=== PATIENT | female | born 1945 | race Caucasian/White ===

== ENCOUNTER 2017-04-02 04:23 | Emergency (ER) | payer MEDICARE, MEDICAID ==
--- NOTE | 2017-04-02 04:52 | C.PDOC ---
History Of Present Illness 72 yo male, hx of htn, dm, presents with right shoulder pain. as per pt, started in the middle of the night w/o inciting factor. pt states pain to right upper arm and shoulder. states pain worse with movement. pt states she had the pain 2x last week. pt states has h/o of arthritis. pt states no fevers, no chest pain, no cough, no n/v/d, no sob, no urinary changes Time Seen by Provider: 04/02/17 04:26 Chief Complaint (Nursing): Upper Extremity Problem/Injury Past Medical History Reviewed: Historical Data, Nursing Documentation, Vital Signs Vital Signs: Last Vital Signs Temp 98.7 F 04/02/17 05:56 Pulse 74 04/02/17 05:56 Resp 20 04/02/17 05:56 BP 117/65 04/02/17 05:56 Pulse Ox 100 04/02/17 05:56 - Medical History PMH: HTN, Hypercholesterolemia Family History: States: Unknown Family Hx - Social History Hx Tobacco Use: No Hx Alcohol Use: No Hx Substance Use: No - Immunization History Hx Tetanus Toxoid Vaccination: Yes Hx Influenza Vaccination: Yes Review Of Systems Except As Marked, All Systems Reviewed And Found Negative. Cardiovascular: Negative for: Chest Pain Musculoskeletal: Positive for: Shoulder Pain (right) Physical Exam - Physical Exam Appears: Well, No Acute Distress Skin: Normal Color, Warm, Dry Eye(s): bilateral: Normal Inspection, PERRL, EOMI Nose: Normal Throat: Normal Neck: Normal Cardiovascular: Rhythm Regular Respiratory: Normal Breath Sounds Gastrointestinal/Abdominal: Normal Exam Back: Normal Inspection Extremity: Normal ROM, Tenderness ((+)right shoulder/upper arm), Capillary Refill (normal), No Deformity, No Swelling ED Course And Treatment O2 Sat by Pulse Oximetry: 97 Medical Decision Making Medical Decision Making: exam consistent with msk pain vs arthrtiis. pt well appeairng, no cp, no sob. pt has pain with rom to right shoulder. toradol, xr reassess 530: xr neg as read by me. pt sleeping in nad. states pain resolved. asking for d/c. no cp. history and exam consistent with non cardiac pain. no erythema, clinical concern for septic joint. stable for outpt management. ambulating around er in nad, pain free. Disposition - Disposition Referrals: Radha Lopez MD [Staff Provider] - Disposition: HOME/ ROUTINE Disposition Time: 05:27 Condition: STABLE Additional Instructions: please your doctor/clinic and specialist. return to er with worsening symptoms or concerns. Prescriptions: Naproxen [Naprosyn] 500 mg PO BID PRN #14 tablet PRN Reason: Pain, Mild (1-3) Instructions: Shoulder Sprain (ED), Arthralgia (ED) Print Language: ANGOLAN - Clinical Impression Clinical Impression: Shoulder pain
[2017-04-02 05:57] VITALS: BP 117/65; PULSE 74; TEMP 98.7
[2017-04-02 06:01] VITALS: O2SAT 97
[2017-04-02 07:33] VITALS: RESP 18
--- NOTE | 2017-04-02 10:56 | RAD ---
PROCEDURE: Radiographs of the Right Shoulder HISTORY: shoulder pain COMPARISON: No prior. FINDINGS: BONES: No evidence of acute fracture. JOINTS: Moderate osteoarthritic changes at the AC joint. Mild separation of the AC joint seen. SOFT TISSUES: Normal. OTHER FINDINGS: None. IMPRESSION: No evidence of acute fracture. Degenerative changes and possible slight separation of the AC joint.
== END 2017-04-02 07:20 | disposition home or self-care (01) ==
LOC: C.ER 04:23
DX: M25.511 Pain in right shoulder (principal)
CPT/HCPCS: 73030; 82948; 96372; 99285; J1885

== ENCOUNTER 2017-04-10 01:14 | Inpatient (IN) | payer MEDICARE, MEDICAID ==
[2017-04-10] MEDS ORDERED: Albuterol HFA 90 mcg/actuation (8 g) IH PRN (22:04)
--- NOTE | 2017-04-10 22:10 | PCM.PSYCH ---
Initial Psychiatric Evaluation - Initial Psychiatric Evaluation Type of Admission: Voluntary Legal Status: Capacity History of Present Illness and Precipitating Events: Patient is a 71 year old female. She is single with three children. Two of her children live in [facility] and one is in the [place]. 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 She lives alone and has a homemaker who visits to help her. Patient came to the hospital because she was feeling depressed, anxious, and felt like she did not want to live. She appeared a bit disorganized and internally preoccupied. Patient says she has not been able to sleep for two months even with medications. She sees Dr. Mccloud every two months, most recently one month ago. She says the medications he is prescribing for depression, anxiety, and sleep are not working. She does not know the name of the medications. Patient feels like she wants to because she does not want to suffer anymore. She has never had any suicide attempts and has no plan. Patient says she hears a voice that is 'constant calling out her name.' The voice is worse at night. She thinks it may be a ' voice of god and that it is preventing her from hurting herself.' Patient was hospitalized for depression one time ten years ago. Patient denies any visual hallucinations but reports paranoid thoughts and persecutory delusions. Patient does not drink, smoke or use any illicit drugs. Patient denies any homicidal ideation. Allergies: denies PMH: HTN, diabetes, arthritis, hyperlipidemia PsychHx: depression, anxiety, insomnia FamPsychHx: Brother with anxiety and depression (he receives medication injections in [facility]) Current Medications: Active Medications Generic Name Dose Route Start Last Admin Trade Name Freq PRN Reason Stop Dose Admin Diphenhydramine HCl 50 mg 04/10/17 21:03 Benadryl PO Q6 PRN Anxiety Haloperidol 5 mg 04/10/17 21:03 Haldol PO Q6H PRN Agitation Lorazepam 0.5 mg 04/10/17 21:03 04/10/17 21:25 Ativan PO 0.5 mg Q6H PRN Administration severe anxiety Sertraline HCl 50 mg 04/11/17 10:00 Zoloft PO DAILY FCO Trazodone HCl 50 mg 04/10/17 21:03 04/10/17 21:25 Desyrel PO 50 mg HS PRN Administration Insomnia Past Psychiatric History - Past Psychiatric History Previous Treatment History: Inpatient Pertinent Medical Hx (Current Medical&Sleep Prob, Allergies): Allergies Allergy/AdvReac Type Severity Reaction Status Date / Time No Known Allergies Allergy Unverified 05/07/14 06:55 Albuterol Sulfate [Proair Hfa] 1 puff IH Q6 PRN #1 inh 05/07/14 Aspirin [Aspir 81] 81 mg PO DAILY 05/07/14 Azithromycin [Zithromax] 250 mg PO DAILY #4 tab 05/07/14 Benzonatate [Tessalon Perles] 200 mg PO TID PRN #30 sgl 05/07/14 Benztropine Mesylate [Cogentin] 1 mg PO HS 05/07/14 Carvedilol 25 mg PO BID 05/07/14 Carvedilol 25 mg PO DAILY 05/07/14 Cholecalciferol [Vitamin D] 5,000 iu PO DAILY 05/07/14 Diclofenac Sodium [Voltaren] 75 mg PO DAILY PRN 05/07/14 Escitalopram [Lexapro] 20 mg PO DAILY 05/07/14 Folic Acid 1 mg PO DAILY 05/07/14 Furosemide 40 mg PO DAILY 05/07/14 Loratadine 10 mg PO DAILY 05/07/14 Metformin Hydrochloride/Alicia [Janumet 500 mg-50 mg] 1 tab PO DAILY 05/07/14 Omeprazole [Omeprazole D/R] 20 mg PO DAILY 05/07/14 Simvastatin 20 mg PO DAILY 05/07/14 Sitagliptin Phosphate [Januvia] 100 mg PO DAILY 05/07/14 Naproxen [Naprosyn] 500 mg PO BID PRN #14 tablet 04/02/17 Review of Systems - Review of Systems All systems: reviewed and no additional remarkable complaints except - Psychiatric Psychiatric: Anxiety, Auditory Hallucinations, Irritability, Paranoia Mental Status Examination - Personal Presentation Personal Presentation: Looks older than stated age - Affect Affect: Constricted, Depressed - Motor Activity Motor Activity: Psychomotor Retardation - Reliability in Providing Information Reliability in Providing Information: Poor, due to alteration in thoughts, Poor , due to altered mood - Speech Speech: Disorganized - Mood Mood: Depressed, Anxious - Formal Thought Process Formal Thought Process: Hallucinations, Delusions, Paranoia, Loosening of associations - Hallucinations/Delusions Hallucinations: Auditory Delusions: Persecution - Obsessions/Compulsions Obsessions: No Compulsions: No - Cognitive Functions Orientation: Person, Place, Situation, Time Sensorium: Alert Attention/Concentration: Attentive Abstract Thinking: [place] Estimate of Intelligence: Below average Judgement: Imparied, as evidence by: Poor judgement, Imparied, as evidence by: Lack of insight into illness - Risk Risk: Suicidal, Diminished functioning - Strength & Assets Inventory Strength & Assets Inventory: Cooperative - Limitations Limitations: Living alone DSM 5 DX - DSM 5 DSM 5 Diagnosis: Schizoaffective disorder depressed type - Recommended/Plan of Treatment Treatment Recommendations and Plan of Treatment: Schizoaffective disorder depressed type CBT Psychoeducation Supportive therapy and group therapy Zoloft 50 mg PO Daily Trazodone 50 mg PO QHS HTN Continue prescribed mediations Monitor signs and symptoms Diabetes Mellitus Continue prescribed mediations Monitor signs and symptoms Arthritis Continue prescribed mediations Monitor signs and symptoms Hyperlipidemia Continue prescribed mediations Monitor signs and symptoms - Smoking Cessation Smoking Cessation Initiated: No
[2017-04-10 23:58] LABS: BASO % 0.4 % (0.0-2.0); EOS # 0.1 K/uL (0.0-0.7); EOS % 1.4 % (0.0-4.0); HEMATOCRIT 34.5 % (34.0-47.0); LYMPH # 2.3 K/uL (1.0-4.3); MEAN CELL VOLUME 88.7 fL (81.0-99.0); MEAN CORPUSCULAR HEMOGLOBIN 28.6 pg (27.0-31.0); MEAN CORPUSCULAR HGB CONC 32.3 g/dL (33.0-37.0); MEAN PLATELET VOLUME 10.8 fL (7.2-11.7); MONO # 0.7 K/uL (0.0-0.8); MONO % 8.5 % (0.0-10.0); RED CELL DISTRIBUTION WIDTH 14.1 % (11.5-14.5); WHITE BLOOD COUNT 7.9 K/uL (4.8-10.8)
[2017-04-11 00:14] LABS: ALB/GLOB RATIO 1.2 (1.0-2.1); ALCOHOL SERUM < 10 mg/dl (0-10); ALKALINE PHOSPHATASE 57 U/L (38-126); ALT/SGPT 41 U/L (9-52); AST/SGOT 30 U/L (14-36); BILIRUBIN,TOTAL 0.4 mg/dL (0.2-1.3); BLOOD UREA NITROGEN 13 mg/dL (7-17); CALCIUM 8.5 mg/dl (8.6-10.4); CARBON DIOXIDE 28 mmol/L (22-30); CHLORIDE 102 mmol/L (98-107); GFR AFRICAN-AMERICAN > 60; GLUCOSE,RANDOM 118 mg/dL (65-105); POTASSIUM 3.2 mmol/L (3.6-5.2); SODIUM 139 mmol/L (132-148); TOTAL PROTEIN 7.5 g/dL (6.3-8.3)
[2017-04-11 07:36] LABS: RBC URINE < 1 /hpf (0-3); URINE BILIRUBIN NEGATIVE (NEGATIVE); URINE BLOOD NEGATIVE (NEGATIVE); URINE COLOR Yellow (YELLOW); URINE GLUCOSE (UA) NORMAL (Normal); URINE KETONE NEGATIVE (NEGATIVE); URINE LEUKOCYTE ESTERASE NEG Leu/uL (Negative); URINE PROTEIN NEGATIVE (NEGATIVE); URINE UROBILINOGEN NORMAL mg/dL (0.2-1.0); WBC URINE < 1 /hpf (0-5)
[2017-04-11] MEDS: Ergocalciferol 50,000 Intl Units Cap PO SCH (11:06)
[2017-04-11] MEDS: Pantoprazole 40 mg EC Tab PO SCH (11:07)
[2017-04-11] MEDS ORDERED: Potassium Chloride 20 mEq ER Tab PO ONE (16:00)
--- NOTE | 2017-04-11 17:44 | PCM.PYCHPN ---
Psychiatric Progress Note - Psychiatric Progress Note Patient seen today, length of contact: 17 min Patient Chief Complaint: I was feeling depressed and suicidal Problems Identified/Issues Discussed: Patient seen and evaluated, chart reviewed and discussed with the nurse. Patient remained disorganized and internally preoccupied. Patient remained isolated, confined and withdrawn. She still reports of hearing God's voices. Patient still appears paranoid and delusional. She reports depressed mood and feelings of hopelessness and helplessness. She is taking medication and denied any side effects Supportive therapy and psychoeducation were given. Medication Change: Yes (Start Neurontin, start Abilify) Medical Record Reviewed: Yes Mental Status Examination - Cognitive Function Orientation: Person, Place, Situation, Time Memory: Intact Attention: Poor Concentration: Poor Association: Loose Fund of Knowledge: Poor - Mood Mood: Depressed, Anxious - Affect Affect: Constricted, Depressed - Speech Speech: Soft - Formal Thought Process Formal Thought Process: Hallucinations, Delusions, Paranoia, Loosening of associations - Suicidal Ideation Suicidal Ideation: No - Homicidal Ideation Homicidal Ideation: No Goal/Treatment Plan - Goal/Treatment Plan Need for Continued Stay: Discharge may exacerbated symptoms, Severe functional impairment Progress Toward Problem(s) and Goals/Treatment Plan: Schizoaffective disorder depressed type CBT Psychoeducation Supportive therapy and group therapy Zoloft 100 mg PO Daily Trazodone 50 mg PO QHS Neurontin 100 mg by mouth 3 times a day Abilify 5 mg by mouth daily at bedtime HTN Continue prescribed mediations Monitor signs and symptoms Diabetes Mellitus Continue prescribed mediations Monitor signs and symptoms Arthritis Continue prescribed mediations Monitor signs and symptoms Hyperlipidemia Continue prescribed mediations Monitor signs and symptoms - Smoking Cessation Smoking Cessation Initiated: No
[2017-04-12 08:13] VITALS: O2SAT 99
[2017-04-12] MEDS: Pantoprazole 40 mg EC Tab PO SCH (09:14)
[2017-04-12 09:35] LABS: CHLORIDE 97 mmol/L (98-107)
[2017-04-12 09:36] LABS: POTASSIUM 3.7 mmol/L (3.6-5.2); SODIUM 139 mmol/L (132-148)
[2017-04-12 09:38] LABS: ALB/GLOB RATIO 1.1 (1.0-2.1); AST/SGOT 22 U/L (14-36); BILIRUBIN,TOTAL 0.6 mg/dL (0.2-1.3); CARBON DIOXIDE 30 mmol/L (22-30); GFR AFRICAN-AMERICAN > 60; TOTAL PROTEIN 7.6 g/dL (6.3-8.3)
[2017-04-12 09:39] LABS: ALKALINE PHOSPHATASE 49 U/L (38-126); ALT/SGPT 25 U/L (9-52); BLOOD UREA NITROGEN 16 mg/dL (7-17); CALCIUM 8.2 mg/dl (8.6-10.4); GLUCOSE,RANDOM 160 mg/dL (65-105)
[2017-04-12] MEDS: Aluminum Hydroxide/Magnesium Hydroxide Susp (30 mL) PO PRN (18:40)
[2017-04-13] MEDS: Pantoprazole 40 mg EC Tab PO SCH (09:57)
[2017-04-13] MEDS: Aluminum Hydroxide/Magnesium Hydroxide Susp (30 mL) PO PRN (09:57)
--- NOTE | 2017-04-14 09:54 | PCM.PYCHPN ---
Psychiatric Progress Note - Psychiatric Progress Note Patient seen today, length of contact: 17 min Patient Chief Complaint: "I was hearing voices, one of God and one of the devil." Problems Identified/Issues Discussed: Patient seen and evaluated, chart reviewed and discussed with the nurse. As per the staff, she remained disorganized and internally preoccupied. She still reports of hearing God's voices. She reports depressed mood and feelings of hopelessness and helplessness. She still appears paranoid and delusional. She is taking medication and denied any side effects Supportive therapy and psychoeducation were given. Medication Change: Yes (increase abilify, increase remeron) Medical Record Reviewed: Yes Mental Status Examination - Cognitive Function Orientation: Person, Place, Situation, Time Memory: Intact Attention: Poor Concentration: Poor Association: Loose Fund of Knowledge: Poor - Mood Mood: Depressed, Anxious - Affect Affect: Constricted, Depressed - Speech Speech: Soft - Formal Thought Process Formal Thought Process: Hallucinations, Delusions, Paranoia, Loosening of associations - Suicidal Ideation Suicidal Ideation: No - Homicidal Ideation Homicidal Ideation: No Goal/Treatment Plan - Goal/Treatment Plan Need for Continued Stay: Discharge may exacerbated symptoms, Severe functional impairment Progress Toward Problem(s) and Goals/Treatment Plan: Schizoaffective disorder depressed type CBT Psychoeducation Supportive therapy and group therapy Abilify 10 mg by mouth daily at bedtime Fluoxetine 10 mg PO daily Neurontin 100 mg by mouth 3 times a day Haldol 5 mg PO Q6H PRN Ativan 0.5 mg PO Q6H PRN Remeron 15 mg PO HS FCO Trazodone 50 mg PO QHS HTN Continue prescribed mediations Monitor signs and symptoms Diabetes Mellitus Continue prescribed mediations Monitor signs and symptoms Arthritis Continue prescribed mediations Monitor signs and symptoms Hyperlipidemia Continue prescribed mediations Monitor signs and symptoms
[2017-04-14] MEDS: Pantoprazole 40 mg EC Tab PO SCH (15:09)
[2017-04-14] MEDS: Aluminum Hydroxide/Magnesium Hydroxide Susp (30 mL) PO PRN ×2 (15:12→21:09)
[2017-04-15] MEDS: Pantoprazole 40 mg EC Tab PO SCH (09:34)
[2017-04-15] MEDS: Aluminum Hydroxide/Magnesium Hydroxide Susp (30 mL) PO PRN (09:38)
--- NOTE | 2017-04-15 10:24 | PCM.PYCHPN ---
Psychiatric Progress Note - Psychiatric Progress Note Patient seen today, length of contact: 17 min Patient Chief Complaint: "I am feeling okay." Problems Identified/Issues Discussed: Patient seen and evaluated today, chart reviewed and discussed with the nurse. Patient improving however still remains isolated, depressed, and complains of hallucinations. She states she is still hearing voices. Patient is still paranoid and delusional. She complains of dizziness and nausea, states she feels very depressed and hopeless. She is taking her medication and denies any side effects. Supportive therapy and psychoeducation were given. Medication Change: Yes (Increase risperdal) Medical Record Reviewed: Yes Mental Status Examination - Cognitive Function Orientation: Person, Place, Situation, Time Memory: Intact Attention: WNL Concentration: Poor Association: WNL Fund of Knowledge: Poor - Mood Mood: Depressed, Anxious - Affect Affect: Constricted, Depressed - Speech Speech: Soft - Formal Thought Process Formal Thought Process: Hallucinations, Delusions, Paranoia - Suicidal Ideation Suicidal Ideation: No - Homicidal Ideation Homicidal Ideation: No Goal/Treatment Plan - Goal/Treatment Plan Need for Continued Stay: Discharge may exacerbated symptoms, Severe functional impairment Progress Toward Problem(s) and Goals/Treatment Plan: Schizoaffective disorder depressed type CBT Psychoeducation Supportive therapy and group therapy Cogentin 1 mg PO BID Fluoxetine 10 mg PO daily Neurontin 100 mg by mouth 3 times a day Remeron 15 mg PO HS FCO Risperidone 1 mg PO daily Risperdal 2 mg PO QHS Trazodone 50 mg PO QHS HTN Continue prescribed mediations Monitor signs and symptoms Diabetes Mellitus Continue prescribed mediations Monitor signs and symptoms Arthritis Continue prescribed mediations Monitor signs and symptoms Hyperlipidemia Continue prescribed mediations Monitor signs and symptoms - Smoking Cessation Smoking Cessation Initiated: No
--- NOTE | 2017-04-16 06:39 | PCM.PYCHPN ---
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) i Problems Identified/Issues Discussed: insomnia , pt stated she has heard voices calling her for more than a year would not mind dying but will not kill herself Medical Problems: nothing acute Diagnostic Results: reviewed Medication Change: No Medical Record Reviewed: Yes Mental Status Examination - Cognitive Function Orientation: Person, Situation, Time Memory: Intact Attention: Poor Association: Loose Fund of Knowledge: Poor - Mood Mood: Depressed, Anxious - Affect Affect: Constricted, Depressed - Speech Speech: Soft - Formal Thought Process Formal Thought Process: Hallucinations, Delusions, Paranoia, Loosening of associations - Suicidal Ideation Suicidal Ideation: No - Homicidal Ideation Homicidal Ideation: No Goal/Treatment Plan - Goal/Treatment Plan Need for Continued Stay: Remain at risks for inpatient hospitalization, Discharge may exacerbated symptoms, Severe functional impairment Progress Toward Problem(s) and Goals/Treatment Plan: aenergic avolition anhedonic auditory hallucinations - Smoking Cessation Smoking Cessation Initiated: No
--- NOTE | 2017-04-16 06:47 | PCM.PYCHPN ---
Psychiatric Progress Note - Psychiatric Progress Note Patient seen today, length of contact: 15 min Patient Chief Complaint: If a perso cannot sleep why should they live Problems Identified/Issues Discussed: insomnia auditory hallucinations Medical Problems: nothing acute Diagnostic Results: reviewed Medication Change: No Medical Record Reviewed: Yes Mental Status Examination - Cognitive Function Orientation: Place, Situation, Time Memory: Intact Attention: Poor Concentration: Poor Association: Loose Fund of Knowledge: Poor - Mood Mood: Depressed, Anxious - Affect Affect: Constricted, Depressed - Speech Speech: Appropriate, Soft - Formal Thought Process Formal Thought Process: Hallucinations, Delusions, Paranoia, Loosening of associations - Suicidal Ideation Suicidal Ideation: No Goal/Treatment Plan - Goal/Treatment Plan Need for Continued Stay: Discharge may exacerbated symptoms, Severe functional impairment Progress Toward Problem(s) and Goals/Treatment Plan: no energy no motivation lackadaisical - Smoking Cessation Smoking Cessation Initiated: No
--- NOTE | 2017-04-16 14:05 | PCM.PYCHPN ---
Psychiatric Progress Note - Psychiatric Progress Note Patient seen today, length of contact: 17 min Patient Chief Complaint: "I am feeling okay." Problems Identified/Issues Discussed: Patient seen and evaluated today, chart reviewed and discussed with the nurse. Patient has started taking care of her hygiene and appears kempt. She reports improvement in her psychosis and depression. She appears more coherent and denies any voices. Supportive therapy and psychoeducation were given. Medication Change: No Medical Record Reviewed: Yes Mental Status Examination - Cognitive Function Orientation: Person, Place, Situation, Time Memory: Intact Attention: WNL Concentration: WNL Association: WNL Fund of Knowledge: Poor - Mood Mood: Depressed, Anxious - Affect Affect: Constricted, Depressed - Speech Speech: Soft - Formal Thought Process Formal Thought Process: Paranoia - Suicidal Ideation Suicidal Ideation: No - Homicidal Ideation Homicidal Ideation: No Goal/Treatment Plan - Goal/Treatment Plan Need for Continued Stay: Discharge may exacerbated symptoms, Severe functional impairment Progress Toward Problem(s) and Goals/Treatment Plan: Schizoaffective disorder depressed type CBT Psychoeducation Supportive therapy and group therapy Cogentin 1 mg PO BID Fluoxetine 20 mg PO daily Neurontin 100 mg by mouth 3 times a day Increase Remeron 30 mg PO HS FCO Risperidone 1 mg PO daily Risperdal 2 mg PO QHS Trazodone 50 mg PO QHS HTN Continue prescribed mediations Monitor signs and symptoms Diabetes Mellitus Continue prescribed mediations Monitor signs and symptoms Arthritis Continue prescribed mediations Monitor signs and symptoms Hyperlipidemia Continue prescribed mediations Monitor signs and symptoms - Smoking Cessation Smoking Cessation Initiated: No
[2017-04-17] MEDS: Aluminum Hydroxide/Magnesium Hydroxide Susp (30 mL) PO PRN ×2 (09:41→18:26)
[2017-04-17] MEDS: Pantoprazole 40 mg EC Tab PO SCH (09:41)
--- NOTE | 2017-04-17 10:17 | PCM.PYCHPN ---
Psychiatric Progress Note - Psychiatric Progress Note Patient seen today, length of contact: 17 min Patient Chief Complaint: "I am feeling better." Problems Identified/Issues Discussed: Patient seen and evaluated today, chart reviewed and discussed with the nurse. Patient is improving and states that she is doing better and is not hearing voices as much. Patient states she does not feel depressed. Upon interaction, patient seems more organized and less internally preoccupied. She is taking her medication and denies any side effects. Supportive therapy and psychoeducation were given. Medication Change: Yes (Increase remeron, increase prozac) Medical Record Reviewed: Yes Mental Status Examination - Cognitive Function Orientation: Person, Place, Situation, Time Memory: Intact Attention: WNL Concentration: Poor Association: WNL Fund of Knowledge: Poor - Mood Mood: Depressed, Anxious - Affect Affect: Constricted, Depressed - Speech Speech: Soft - Formal Thought Process Formal Thought Process: Hallucinations, Delusions, Paranoia - Suicidal Ideation Suicidal Ideation: No - Homicidal Ideation Homicidal Ideation: No Goal/Treatment Plan - Goal/Treatment Plan Need for Continued Stay: Discharge may exacerbated symptoms, Severe functional impairment Progress Toward Problem(s) and Goals/Treatment Plan: Schizoaffective disorder depressed type CBT Psychoeducation Supportive therapy and group therapy Cogentin 1 mg PO BID Fluoxetine 20 mg PO daily Neurontin 100 mg by mouth 3 times a day Increase Remeron 30 mg PO HS FCO Risperidone 1 mg PO daily Risperdal 2 mg PO QHS Trazodone 50 mg PO QHS HTN Continue prescribed mediations Monitor signs and symptoms Diabetes Mellitus Continue prescribed mediations Monitor signs and symptoms Arthritis Continue prescribed mediations Monitor signs and symptoms Hyperlipidemia Continue prescribed mediations Monitor signs and symptoms
[2017-04-18] MEDS: Ergocalciferol 50,000 Intl Units Cap PO SCH (09:34)
[2017-04-18 09:37] VITALS: BP 153/77
[2017-04-18] MEDS: Pantoprazole 40 mg EC Tab PO SCH (09:37)
[2017-04-18] MEDS: Aluminum Hydroxide/Magnesium Hydroxide Susp (30 mL) PO PRN (09:42)
--- NOTE | 2017-04-18 10:21 | PCM.PYCHDC ---
Mental Status Examination - Mental Status Examination Orientation: Person, Place, Situation, Time Memory: Intact Mood: Neutral Affect: Constricted Speech: Soft Attention: WNL Concentration: WNL Association: WNL Fund of Knowledge: WNL Formal Thought Process: No Impairment Description of patient's judgement and insight: good, fair Psychotic Thoughts and Behaviors: denies any AVH Suicidal Ideation: No Current Homicidal Ideation?: No Discharge Summary - Discharge Note Reason for Hospitalization: Patient is a 71 year old female. She is single with three children. Two of her children live in [facility] and one is in the [place]. 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 She lives alone and has a homemaker who visits to help her. Patient came to the hospital because she was feeling depressed, anxious, and felt like she did not want to live. She appeared a bit disorganized and internally preoccupied. Patient says she has not been able to sleep for two months even with medications. She sees Dr. Mccloud every two months, most recently one month ago. She says the medications he is prescribing for depression, anxiety, and sleep are not working. She does not know the name of the medications. Patient feels like she wants to because she does not want to suffer anymore. She has never had any suicide attempts and has no plan. Patient says she hears a voice that is 'constant calling out her name.' The voice is worse at night. She thinks it may be a ' voice of god and that it is preventing her from hurting herself.' Patient was hospitalized for depression one time ten years ago. Patient denies any visual hallucinations but reports paranoid thoughts and persecutory delusions. Patient does not drink, smoke or use any illicit drugs. Patient denies any homicidal ideation. Laboratory Data: Abnormal Lab Results 04/17/17 04/18/17 16:27 07:22 POC Glucose (mg/dL) 102 94 Consultations:: List each consultation separately and include: 1. Reason for request. 2. Findings. 3. Follow-up Summary of Hospital Course include:: 1. Description of specific treatment plan utilized for patients during their course of treatmen. 2. Summarize the time- course for resolution of acute symptoms and/or regressed behaviors. 3. Describe issues identified and worked on during hospitalization. 4. Describe medication utilized. 5. Describe medical problems identified and treated. 6. Reassessment of suicide risk Summary of Hospital Course: During the course of her stay, patient (pt) started progressively improving and she no longer remained irritable, anxious and paranoid. Her mood and paranoia were improved and she started attending groups and meetings and started socializing. Patient denied any feelings of hopelessness, helplessness, and worthlessness, denied any problem with the sleep or appetite, denied suicidal ideation or homicidal ideation. Pt denied any auditory or visual hallucinations. Some changes were made in her current medications and patient was discharged on following medications. She tolerated these medications very well and denied any side effects. - Final Diagnosis (DSM 5) Condition upon Discharge: GOOD DSM 5: Schizoaffective disorder depressed type Disposition: HOME/ ROUTINE Follow-up Treatment Plan: Education: Pt was educated and counseled about the risks and benefits of taking and not taking medications. Pt was educated and counseled about the risks of drinking and abusing drugs. Pt was educated and counseled to go to the ER or call 911 if pt develop suicidal ideation or homicidal ideation, worsening of symptoms or severe side effects of the meds. Prescriptions/Medication Reconciliation: Benztropine [Cogentin] 1 mg PO BID #60 tab FLUoxetine [Prozac] 20 mg PO DAILY #30 cap Mirtazapine [Remeron] 30 mg PO HS #30 tab risperiDONE [RisperDAL Tab] 1 mg PO DAILY #30 tab risperiDONE [RisperDAL Tab] 2 mg PO HS #30 tab traZODone [Desyrel] 100 mg PO HS PRN #30 tab PRN Reason: Insomnia - Smoking Cessation Smoking Cessation Medication prescribed: No - Antipsychotic Medications Pt discharged on 2 or more routine antipsychotic medications: No
[2017-04-18 14:13] VITALS: PULSE 90; RESP 19; TEMP 97.9
== END 2017-04-18 12:35 | disposition home or self-care (01) | DRG 885 ==
LOC: C.ER 01:14 → C.5E 04:00
PROVIDERS: ADMIT Psychiatry & Neurology Psychiatry; ATTEND Psychiatry & Neurology Psychiatry
DX: F25.1 Schizoaffective disorder, depressive type (principal); E11.9 Type 2 diabetes mellitus without complications; I10 Essential (primary) hypertension; M19.90 Unspecified osteoarthritis, unspecified site; E78.5 Hyperlipidemia, unspecified

== ENCOUNTER 2017-06-10 02:18 | Inpatient (IN) | payer MEDICARE, MEDICAID ==
[2017-06-10 02:30] VITALS: O2SAT 97
--- NOTE | 2017-06-10 02:34 | C.PDOC ---
History Of Present Illness 72 year old female who presents to the ER with a complaint of feeling depressed for the past few months but more so tonight. Denies HI or SI. Chief Complaint (Nursing): Psychiatric Evaluation History Per: Patient History/Exam Limitations: no limitations Onset/Duration Of Symptoms: Days Current Symptoms Are (Timing): Still Present Suicide/Self Injury Attempted (Context): None Modifying Factor(s): None Associated Symptoms: Depression. denies: Suicidal Thoughts, Suicidal Plan Recent travel outside of the [place]: No Past Medical History Reviewed: Historical Data, Nursing Documentation, Vital Signs Vital Signs: Last Vital Signs Temp 97.4 F L 06/10/17 02:25 Pulse 68 06/10/17 02:25 Resp 20 06/10/17 02:25 BP 148/70 06/10/17 02:25 Pulse Ox 97 06/10/17 02:39 - Medical History PMH: Depression, HTN, Hypercholesterolemia Surgical History: No Surg Hx Family History: States: Unknown Family Hx - Social History Hx Tobacco Use: No Hx Alcohol Use: No Hx Substance Use: No - Immunization History Hx Tetanus Toxoid Vaccination: Yes Hx Influenza Vaccination: Yes Review Of Systems Constitutional: Negative for: Fever, Chills Gastrointestinal: Negative for: Nausea, Vomiting, Diarrhea Psych: Positive for: Depression. Negative for: Suicidal ideation Physical Exam - Physical Exam Appears: Non-toxic, No Acute Distress Skin: Normal Color, Warm, Dry Head: Atraumatic, Normacephalic Oral Mucosa: Moist Chest: Symmetrical, No Tenderness Cardiovascular: Rhythm Regular, No Murmur Respiratory: Normal Breath Sounds, No Rales, No Rhonchi, No Wheezing Gastrointestinal/Abdominal: Soft, No Tenderness Neurological/Psych: Oriented x3, Normal Speech, Normal Cognition ED Course And Treatment - Laboratory Results Result Diagrams: 06/10/17 02:48 06/10/17 02:48 O2 Sat by Pulse Oximetry: 97 (Room air) Pulse Ox Interpretation: Normal Progress Note: Blood work and urinalysis ordered. Disposition Discussed With : Henrietta Banegas Doctor Will See Patient In The: Hospital Counseled Patient/Family Regarding: Diagnosis - Disposition Referrals: Nancy Mota MD [Primary Care Provider] - Disposition: HOSPITALIZED Disposition Time: 04:35 Condition: STABLE - Clinical Impression Clinical Impression: Schizoaffective disorder, depressive type - Scribe Statement The provider has reviewed the documentation as recorded by the Scribjames Ignacio All medical record entries made by the Rickibjames were at my direction and personally dictated by me. I have reviewed the chart and agree that the record accurately reflects my personal performance of the history, physical exam, medical decision making, and the department course for this patient. I have also personally directed, reviewed, and agree with the discharge instructions and disposition.
[2017-06-10 02:52] LABS: BASO # 0.1 K/uL (0.0-0.2); BASO % 0.9 % (0.0-2.0); EOS # 0.3 K/uL (0.0-0.7); EOS % 4.6 % (0.0-4.0); HEMATOCRIT 33.5 % (34.0-47.0); LYMPH # 2.7 K/uL (1.0-4.3); LYMPH % 47.6 % (20.0-40.0); MEAN CELL VOLUME 87.6 fL (81.0-99.0); MEAN CORPUSCULAR HEMOGLOBIN 28.7 pg (27.0-31.0); MEAN CORPUSCULAR HGB CONC 32.8 g/dL (33.0-37.0); MEAN PLATELET VOLUME 9.3 fL (7.2-11.7); MONO # 0.4 K/uL (0.0-0.8); MONO % 7.8 % (0.0-10.0); RED CELL DISTRIBUTION WIDTH 14.4 % (11.5-14.5); WHITE BLOOD COUNT 5.7 K/uL (4.8-10.8)
[2017-06-10 02:53] LABS: URINE BILIRUBIN NEGATIVE (NEGATIVE); URINE BLOOD NEGATIVE (NEGATIVE); URINE COLOR Straw (YELLOW); URINE GLUCOSE (UA) NORMAL (Normal); URINE KETONE NEGATIVE (NEGATIVE); URINE LEUKOCYTE ESTERASE NEG Leu/uL (Negative); URINE PROTEIN NEGATIVE (NEGATIVE); URINE UROBILINOGEN NORMAL mg/dL (0.2-1.0); WBC URINE < 1 /hpf (0-5)
[2017-06-10 02:58] LABS: CHLORIDE 101 mmol/L (98-107); SODIUM 138 mmol/L (132-148)
[2017-06-10 02:59] LABS: POTASSIUM 3.2 mmol/L (3.6-5.2)
[2017-06-10 03:01] LABS: ALKALINE PHOSPHATASE 56 U/L (38-126); AST/SGOT 45 U/L (14-36); BILIRUBIN,TOTAL 0.4 mg/dL (0.2-1.3); BLOOD UREA NITROGEN 19 mg/dL (7-17); CARBON DIOXIDE 28 mmol/L (22-30); GFR AFRICAN-AMERICAN > 60; GLUCOSE,RANDOM 107 mg/dL (65-105); TOTAL PROTEIN 7.1 g/dL (6.3-8.3)
[2017-06-10 03:02] LABS: ALCOHOL SERUM < 10 mg/dl (0-10); ALT/SGPT 58 U/L (9-52)
[2017-06-10] MEDS ORDERED: Potassium Chloride 20 mEq/15 ml LIQ UD PO STA (03:19)
[2017-06-10] MEDS ORDERED: Potassium Chloride 20 mEq/15 ml LIQ UD ONE (03:41)
--- NOTE | 2017-06-10 05:33 | PCM.BM ---
<Osbaldo Jha - Last Filed: 06/10/17 05:31> Treatment Plan Problems - Problems identified on initial assessmt Problem 1 Date Initiated: 06/10/17 Time Initiated: 05:31 Assessment reference: NA Status: Active Treatment assets and liabiliti Patient Assests: cooperative, self-reliant Patient Liabilities: financial problems, poor support system, medical problems - Milieu Protocol Maintain good personal hygiene: daily Encourage regular showers, daily Remind patient to perform daily oral care, daily Assist patient to perform ADL's Maintain personal safety: every shift Educate patient to report safety concerns to staff, every shift Monitor environment for contraband/sharps Medication safety: Monitor for expected outcome, potential side effects: every shift, Assess barriers to learning: daily, Assess readiness for medication education: every shift <Radha Angelo - Last Filed: 06/11/17 11:18> - Diagnosis (1) Schizoaffective disorder, depressive type Status: Acute Interventions: 06/11/17 11:18 attend groups, take meds
--- NOTE | 2017-06-10 12:08 | PCM.PSYCH ---
Initial Psychiatric Evaluation - Initial Psychiatric Evaluation Type of Admission: Voluntary Legal Status: Capacity Chief Complaint (in patient's own words): I was feeling depressed' History of Present Illness and Precipitating Events: Patient is a 72yo , female self-referred to ED reportedly c/o feelings of depression/anxiety and insomnia. Pt speaks primarily Greek. Pt appears disorganized and internally preoccupied throughout the interview. She was superficially cooperative but guarded about the details. As per the ED notes patient reported the following: "I can't sleep, I only sleep 1-2 hours each night;" Pt also reports feeling depressed and having less energy. Patient denies auditory hallucinations today and last occurrence of hallucination was "2wks ago", when she said she heard a voice calling out her name; Overall, the above symptoms have been on-going for "a very long time". Pt attributes her symptoms of depression/anxiety to her inability to sleep; Pt has a long hx of receiving treatment at [facility], and stated she has remained treatment compliant; However, her med regime has not alleviated her of her symptoms; Pt denies having a current/prior hx of suicide/homicide; However, Pt's medical record indicates Pt had thoughts of dying in March 2017; Pt currently lives alone. Pt has 3 children, all of whom live in the [place], ages 30, 40 and 50; Pt's medical record indicates Pt does have a homemaker during the day. Patient reports having a good appetite. Pt sees a psychiatrist every 2 months. Patient denies using alcohol or any drugs, including marijuana, heroin, cocaine and tobacco. Patient was last hospitalized voluntarily 1 month ago for 9 days. Current Medications: Active Medications Generic Name Dose Route Start Last Admin Trade Name Jacobo PRN Reason Stop Dose Admin Amlodipine Besylate 5 mg 06/10/17 12:15 Norvasc PO DAILY [facility] Benztropine Mesylate 1 mg 06/10/17 18:00 Cogentin PO BID [facility] Carvedilol 25 mg 06/10/17 12:04 Coreg PO BID [facility] Escitalopram Oxalate 20 mg 06/10/17 12:15 Lexapro PO DAILY [facility] Folic Acid 1 mg 06/10/17 12:15 Folic Acid PO DAILY [facility] Furosemide 20 mg 06/10/17 12:15 Lasix PO DAILY [facility] Home Med 1,000 mg 06/10/17 12:15 Garlic [Garlic Oil] PO DAILY [facility] Home Med 300 mg 06/10/17 12:15 Quetiapine Fumarate [Seroquel] PO DAILY [facility] Home Med 1 tab 06/10/17 12:15 Valsartan/Hydrochlorothiazide [Valsartan-Hctz 320-25 Mg Tab] PO DAILY [facility] Methotrexate 2.5 mg 06/17/17 10:00 Methotrexate PO QWK [facility] Past Psychiatric History - Past Psychiatric History Previous Treatment History: Inpatient Pertinent Medical Hx (Current Medical&Sleep Prob, Allergies): Allergies Allergy/AdvReac Type Severity Reaction Status Date / Time No Known Allergies Allergy Verified 06/10/17 02:25 Benztropine [Benztropine Mesylate] 1 mg PO BID 06/10/17 Carvedilol [Coreg] 25 mg PO BID 06/10/17 Escitalopram [Lexapro] 20 mg PO DAILY 06/10/17 Folic Acid 1 tab PO DAILY 06/10/17 Furosemide [Lasix] 20 mg PO DAILY 06/10/17 Garlic [Garlic Oil] 1,000 mg PO DAILY 06/10/17 Methotrexate 2.5 mg PO QWK 06/10/17 Quetiapine Fumarate [Seroquel] 300 mg PO DAILY 06/10/17 Valsartan/Hydrochlorothiazide [Valsartan-Hctz 320-25 mg Tab] 1 tab PO DAILY amLODIPine [Norvasc] 5 mg PO DAILY 06/10/17 Review of Systems - Review of Systems All systems: reviewed and no additional remarkable complaints except - Psychiatric Psychiatric: Anhedonia, Anxiety, Depression, Difficulty Concentrating, Hopelessness, Irritability, Paranoia Mental Status Examination - Personal Presentation Personal Presentation: Looks stated age - Affect Affect: Constricted, Depressed - Motor Activity Motor Activity: Psychomotor Retardation - Reliability in Providing Information Reliability in Providing Information: Poor, due to alteration in thoughts, Poor , due to altered mood - Speech Speech: Disorganized - Mood Mood: Depressed, Anxious - Formal Thought Process Formal Thought Process: Delusions, Paranoia, Loosening of associations - Hallucinations/Delusions Delusions: Persecution - Obsessions/Compulsions Obsessions: No Compulsions: No - Cognitive Functions Orientation: Person, Place, Situation, Time Sensorium: Alert Attention/Concentration: Attentive Abstract Thinking: [place] Estimate of Intelligence: Below average Judgement: Imparied, as evidence by: Poor judgement, Imparied, as evidence by: Lack of insight into illness, Intact, as evidence by: Insight regarding need for hospitalization - Risk Risk: Diminished functioning - Strength & Assets Inventory Strength & Assets Inventory: Family support - Limitations Limitations: Living alone DSM 5 DX - DSM 5 DSM 5 Diagnosis: Schizoaffective disorder bipolar type - Recommended/Plan of Treatment Treatment Recommendations and Plan of Treatment: Schizoaffective disorder bipolar type CBT Psychoeducation Supportive therapy, group therapy, individual therapy Lexapro 20 mg PO Daily Trazodone 50 mg po QHS Seroquel 200 mg PO QHS Prognosis: Good with treatment
[2017-06-10] MEDS ORDERED: GARLIC 1000 MG PO SCH (12:15)
--- NOTE | 2017-06-11 11:06 | PCM.BM ---
Treatment Plan Problems - Problems identified on initial assessmt Problem 1 Date Initiated: 06/10/17 Time Initiated: 05:31 Assessment reference: NA Status: Active Treatment assets and liabiliti Patient Assests: cooperative, self-reliant Patient Liabilities: financial problems, poor support system, medical problems - Diagnosis (1) Schizoaffective disorder, depressive type Status: Acute Interventions: Take meds, Attend groups - Milieu Protocol Maintain good personal hygiene: daily Encourage regular showers, daily Remind patient to perform daily oral care, daily Assist patient to perform ADL's Maintain personal safety: every shift Educate patient to report safety concerns to staff, every shift Monitor environment for contraband/sharps Medication safety: Monitor for expected outcome, potential side effects: every shift, Assess barriers to learning: daily, Assess readiness for medication education: every shift Milieu Narrative: Schizoaffective disorder bipolar type CBT Psychoeducation Supportive therapy, group therapy, individual therapy Lexapro 20 mg PO Daily Trazodone 50 mg po QHS Seroquel 200 mg PO QHS Discharge/Continuing Care - Additional Comments Schizoaffective disorder bipolar type CBT Psychoeducation Supportive therapy, group therapy, individual therapy Lexapro 20 mg PO Daily Trazodone 50 mg po QHS Seroquel 200 mg PO QHS - Treatment Team Participation Patient/Family/SO Statement: Schizoaffective disorder bipolar type CBT Psychoeducation Supportive therapy, group therapy, individual therapy Lexapro 20 mg PO Daily Trazodone 50 mg po QHS Seroquel 200 mg PO QHS
--- NOTE | 2017-06-11 15:18 | PCM.PYCHPN ---
Psychiatric Progress Note - Psychiatric Progress Note Patient seen today, length of contact: 16 min Patient Chief Complaint: "I feel depressed" Problems Identified/Issues Discussed: The pt is seen, chart reviewed, case discussed with staff. Patient remained disorganized and internally preoccupied. Patient still appears paranoid and delusional. Patient remained isolated and withdrawn. She remained confined to her room and she is not attending groups and meetings. She remained disheveled and unkempt. She is taking medication and denies any side effects. Supportive therapy and psychoeducation were given. Medication Change: No Medical Record Reviewed: Yes Mental Status Examination - Cognitive Function Orientation: Person, Place, Situation, Time Attention: Poor Concentration: Poor Association: Loose Fund of Knowledge: WNL - Mood Mood: Depressed, Anxious - Affect Affect: Constricted, Depressed - Speech Speech: Soft - Formal Thought Process Formal Thought Process: Delusions, Paranoia, Loosening of associations - Suicidal Ideation Suicidal Ideation: No - Homicidal Ideation Homicidal Ideation: No Goal/Treatment Plan - Goal/Treatment Plan Need for Continued Stay: Severe depression anxiety, Discharge may exacerbated symptoms, Severe functional impairment Progress Toward Problem(s) and Goals/Treatment Plan: Schizoaffective disorder bipolar type CBT Psychoeducation Supportive therapy, group therapy, individual therapy Lexapro 20 mg PO Daily Trazodone 50 mg po QHS Seroquel 200 mg PO QHS - Smoking Cessation Smoking Cessation Initiated: No
--- NOTE | 2017-06-12 12:42 | PCM.PYCHPN ---
Psychiatric Progress Note - Psychiatric Progress Note Patient seen today, length of contact: 16 min Patient Chief Complaint: "I feel depressed" Problems Identified/Issues Discussed: The pt is seen, chart reviewed, case discussed with staff. As per the staff patient remained isolated and withdrawn. Patient remained disorganized and internally preoccupied. Patient reports of hearing voices, calling her names and reports seeing things, shadows. She still appears paranoid and delusional. Patient remained isolated and withdrawn. She remained confined to her room and she is not attending groups and meetings. She is taking medication and denies any side effects. Supportive therapy and psychoeducation were given. Medication Change: Yes (increase Seroquel) Medical Record Reviewed: Yes Mental Status Examination - Cognitive Function Orientation: Person, Place, Situation, Time Attention: Poor Concentration: Poor Association: Loose Fund of Knowledge: WNL - Mood Mood: Depressed, Anxious - Affect Affect: Constricted, Depressed - Speech Speech: Soft - Formal Thought Process Formal Thought Process: Delusions, Paranoia, Loosening of associations - Suicidal Ideation Suicidal Ideation: No - Homicidal Ideation Homicidal Ideation: No Goal/Treatment Plan - Goal/Treatment Plan Need for Continued Stay: Severe depression anxiety, Discharge may exacerbated symptoms, Severe functional impairment Progress Toward Problem(s) and Goals/Treatment Plan: Schizoaffective disorder bipolar type CBT Psychoeducation Supportive therapy, group therapy, individual therapy Lexapro 20 mg PO Daily Trazodone 50 mg po QHS Seroquel 300 mg PO QHS - Smoking Cessation Smoking Cessation Initiated: No
--- NOTE | 2017-06-13 12:43 | PCM.PYCHPN ---
Psychiatric Progress Note - Psychiatric Progress Note Patient seen today, length of contact: 16 min Patient Chief Complaint: "I feel depressed" Problems Identified/Issues Discussed: The pt is seen, chart reviewed, case discussed with staff. Patient appeared more organized and less internally preoccupied. However, she still remained paranoid and delusional. She reports of hearing voices and seeing things. As per the staff patient remained isolated and withdrawn. She remained confined to her room and she is not attending groups and meetings. She needs more time for stabilization. She is taking medication and denies any side effects. Supportive therapy and psychoeducation were given. Medication Change: Yes (increase Seroquel) Medical Record Reviewed: Yes Mental Status Examination - Cognitive Function Orientation: Person, Place, Situation, Time Attention: Poor Concentration: Poor Association: Loose Fund of Knowledge: WNL - Mood Mood: Depressed, Anxious - Affect Affect: Constricted, Depressed - Speech Speech: Soft - Formal Thought Process Formal Thought Process: Delusions, Paranoia, Loosening of associations - Suicidal Ideation Suicidal Ideation: No - Homicidal Ideation Homicidal Ideation: No Goal/Treatment Plan - Goal/Treatment Plan Need for Continued Stay: Severe depression anxiety, Discharge may exacerbated symptoms, Severe functional impairment Progress Toward Problem(s) and Goals/Treatment Plan: Schizoaffective disorder bipolar type CBT Psychoeducation Supportive therapy, group therapy, individual therapy Lexapro 20 mg PO Daily Trazodone 50 mg po QHS Seroquel 300 mg PO QHS
--- NOTE | 2017-06-14 18:43 | PCM.PYCHPN ---
Psychiatric Progress Note - Psychiatric Progress Note Patient seen today, length of contact: 15 minutes Patient Chief Complaint: I still hear voices especially at night Problems Identified/Issues Discussed: Patient seen. Chart reviewed. Case discussed with the staff. Patient was evaluated with the help of a Lao speaking staff member. Patient reported compliant with treatment with no adverse affects. Tolerating treatment very well. Patient reported that before admission to the hospital, she ran out of medication for 2 weeks, started feeling depressed and came to ER for help and was admitted. Patient reported she still hears voices especially at night, calling her. Patient is taking 300 mg of Seroquel, if needed will increase the dose. Still patient is isolative, staying in her room most of the time, not participating in groups. At the time of evaluation, patient was awake alert oriented 3, had no delusions, no auditory or visual hallucinations, no suicidal ideations or homicidal ideations. Medical Problems: Hypertension Diagnostic Results: Reviewed DSM 5 Symptoms Update: Some improvement with treatment Medication Change: No Medical Record Reviewed: Yes Mental Status Examination - Cognitive Function Orientation: Person, Place, Situation, Time Memory: Intact Attention: WNL Concentration: WNL Association: Loose Fund of Knowledge: WNL Decription of patient's judgement and insights: Fair - Mood Mood: Depressed - Affect Affect: Constricted, Depressed - Speech Speech: Soft - Formal Thought Process Formal Thought Process: Loosening of associations - Suicidal Ideation Suicidal Ideation: No - Homicidal Ideation Homicidal Ideation: No Goal/Treatment Plan - Goal/Treatment Plan Need for Continued Stay: Remain at risks for inpatient hospitalization, Discharge may exacerbated symptoms, Severe functional impairment Progress Toward Problem(s) and Goals/Treatment Plan: Some improvement with treatment Patient education Supportive therapy Continue treatment as before Estimated Date of D/C: 06/16/17 - Smoking Cessation Smoking Cessation Initiated: No
--- NOTE | 2017-06-15 12:58 | PCM.PYCHPN ---
Psychiatric Progress Note - Psychiatric Progress Note Patient seen today, length of contact: 15 minutes Patient Chief Complaint: "Tired" Problems Identified/Issues Discussed: The pt is seen, chart reviewed, case discussed with staff. The pt is compliant with medications and reports no side-effects. Symptoms are improving but needs more time to stabilize. After care discussed, support and psychoeducation given. Medication Change: No Medical Record Reviewed: Yes Mental Status Examination - Cognitive Function Orientation: Person, Place, Situation, Time Memory: Intact Attention: WNL Concentration: WNL Association: Loose Fund of Knowledge: WNL - Mood Mood: Depressed - Affect Affect: Constricted, Depressed - Speech Speech: Soft - Formal Thought Process Formal Thought Process: Loosening of associations - Suicidal Ideation Suicidal Ideation: No - Homicidal Ideation Homicidal Ideation: No Goal/Treatment Plan - Goal/Treatment Plan Need for Continued Stay: Remain at risks for inpatient hospitalization, Discharge may exacerbated symptoms, Severe functional impairment Progress Toward Problem(s) and Goals/Treatment Plan: Continue medications Support and psychoeducation daily Attend groups and activities daily After care planning by CATA Estimated Date of D/C: 06/17/17 If changed, why: still depressed
[2017-06-16] MEDS ORDERED: Calcium Carbonate 500 mg Chewable Antacid Tab PO PRN (13:41)
--- NOTE | 2017-06-16 15:37 | PCM.PYCHPN ---
Psychiatric Progress Note - Psychiatric Progress Note Patient seen today, length of contact: 15 minutes Patient Chief Complaint: "I am still sad. Not a lot but a little." Problems Identified/Issues Discussed: The pt is seen, chart reviewed, case discussed with staff. Patient reports only sleeping 1 hour at night. Support given, CBT and WI used briefly No new symptoms reported, improving slowly and needs more time No SEs from medications, risks discussed. After care discussed Medication Change: No Medical Record Reviewed: Yes Mental Status Examination - Cognitive Function Orientation: Person, Place, Situation, Time Memory: Intact Attention: WNL Concentration: WNL Association: Loose Fund of Knowledge: WNL - Mood Mood: Depressed - Affect Affect: Constricted, Depressed - Speech Speech: Soft - Formal Thought Process Formal Thought Process: Loosening of associations - Suicidal Ideation Suicidal Ideation: No - Homicidal Ideation Homicidal Ideation: No Goal/Treatment Plan - Goal/Treatment Plan Need for Continued Stay: Severe depression anxiety, Discharge may exacerbated symptoms, Severe functional impairment Progress Toward Problem(s) and Goals/Treatment Plan: Continue medications Support and psychoeducation daily Attend groups and activities daily After care planning by CATA Estimated Date of D/C: 06/17/17
[2017-06-17 07:52] VITALS: RESP 18; TEMP 98.3
--- NOTE | 2017-06-17 10:35 | PCM.PYCHDC ---
Mental Status Examination - Mental Status Examination Orientation: Person, Place, Situation, Time Memory: Intact Mood: Neutral Affect: Constricted Speech: Soft Attention: WNL Concentration: WNL Association: WNL Fund of Knowledge: WNL Formal Thought Process: No Impairment Description of patient's judgement and insight: good, fair Psychotic Thoughts and Behaviors: denies any AVH Suicidal Ideation: No Current Homicidal Ideation?: No Discharge Summary - Discharge Note Reason for Hospitalization: Patient is a 72yo , female self-referred to ED reportedly c/o feelings of depression/anxiety and insomnia. Pt speaks primarily [place]ian. Pt appears disorganized and internally preoccupied throughout the interview. She was superficially cooperative but guarded about the details. As per the ED notes patient reported the following: "I can't sleep, I only sleep 1-2 hours each night;" Pt also reports feeling depressed and having less energy. Patient denies auditory hallucinations today and last occurrence of hallucination was "2wks ago", when she said she heard a voice calling out her name; Overall, the above symptoms have been on-going for "a very long time". Pt attributes her symptoms of depression/anxiety to her inability to sleep; Pt has a long hx of receiving treatment at [facility], and stated she has remained treatment compliant; However, her med regime has not alleviated her of her symptoms; Pt denies having a current/prior hx of suicide/homicide; However, Pt's medical record indicates Pt had thoughts of dying in March 2017; Pt currently lives alone. 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 Patient reports having a good appetite. Pt sees a psychiatrist every 2 months. Patient denies using alcohol or any drugs, including marijuana, heroin, cocaine and tobacco. Patient was last hospitalized voluntarily 1 month ago for 9 days. Consultations:: List each consultation separately and include: 1. Reason for request. 2. Findings. 3. Follow-up Summary of Hospital Course include:: 1. Description of specific treatment plan utilized for patients during their course of treatmen. 2. Summarize the time- course for resolution of acute symptoms and/or regressed behaviors. 3. Describe issues identified and worked on during hospitalization. 4. Describe medication utilized. 5. Describe medical problems identified and treated. 6. Reassessment of suicide risk Summary of Hospital Course: During the course of her stay, patient (pt) started progressively improving and she no longer remained irritable, anxious and paranoid. Her mood and paranoia were improved and she started attending groups and meetings and started socializing. Patient denied any feelings of hopelessness, helplessness, and worthlessness, denied any problem with the sleep or appetite, denied suicidal ideation or homicidal ideation. Pt denied any auditory or visual hallucinations. Some changes were made in her current medications and patient was discharged on following medications. She tolerated these medications very well and denied any side effects. - Diagnosis (1) Schizoaffective disorder, depressive type Status: Acute - Final Diagnosis (DSM 5) Condition upon Discharge: STABLE DSM 5: Schizoaffective disorder bipolar type Disposition: HOME/ ROUTINE Follow-up Treatment Plan: Education: Pt was educated and counseled about the risks and benefits of taking and not taking medications. Pt was educated and counseled about the risks of drinking and abusing drugs. Pt was educated and counseled to go to the ER or call 911 if pt develop suicidal ideation or homicidal ideation, worsening of symptoms or severe side effects of the meds. Prescriptions/Medication Reconciliation: Escitalopram [Lexapro] 20 mg PO DAILY #30 Quetiapine Fumarate [Seroquel] 300 mg PO DAILY #30 traZODone [Desyrel] 100 mg PO HS #30 tab - Smoking Cessation Smoking Cessation Medication prescribed: No - Antipsychotic Medications Pt discharged on 2 or more routine antipsychotic medications: No
[2017-06-17 15:51] VITALS: BP 91/60; PULSE 78
== END 2017-06-17 17:05 | disposition home or self-care (01) | DRG 885 ==
LOC: SUPCPDRO 02:18 → C.ER 02:18 → C.5E 04:36
PROVIDERS: ADMIT Psychiatry & Neurology Psychiatry; ATTEND Psychiatry & Neurology Psychiatry
PROC: GZ3ZZZZ Medication Management (ICD-10-PCS; principal; 2017-06-10)
PROC: GZHZZZZ Group Psychotherapy (ICD-10-PCS; 2017-06-10)
PROC: GZ56ZZZ Individual Psychotherapy, Supportive (ICD-10-PCS; 2017-06-10)
DX: F25.0 Schizoaffective disorder, bipolar type (principal); I10 Essential (primary) hypertension; G47.00 Insomnia, unspecified; E78.00 Pure hypercholesterolemia, unspecified

== ENCOUNTER 2018-07-16 16:01 | Emergency (ER) | payer MEDICARE, MEDICAID ==
[2018-07-16 16:06] VITALS: TEMP 97.9
[2018-07-16 17:00] LABS: BASO # 0.1 K/uL (0.0-0.2); BASO % 0.8 % (0.0-2.0); EOS # 0.1 K/uL (0.0-0.7); EOS % 1.2 % (0.0-4.0); LYMPH # 1.5 K/uL (1.0-4.3); LYMPH % 18.5 % (20.0-40.0); MEAN CORPUSCULAR HEMOGLOBIN 28.2 pg (27.0-31.0); MEAN CORPUSCULAR HGB CONC 33.2 g/dL (33.0-37.0); MEAN PLATELET VOLUME 10.5 fL (7.2-11.7); MONO # 0.8 K/uL (0.0-0.8); MONO % 9.1 % (0.0-10.0); NEUT # 5.9 K/uL (1.8-7.0); NEUT % 70.4 % (50.0-75.0); RBC 4.25 Mil/uL (3.80-5.20); RED CELL DISTRIBUTION WIDTH 15.9 % (11.5-14.5); WHITE BLOOD COUNT 8.4 K/uL (4.8-10.8)
[2018-07-16 17:03] LABS: MEAN CELL VOLUME 84.9 fL (81.0-99.0)
[2018-07-16 17:05] LABS: URINE BACTERIA OCC (<OCC); URINE BILIRUBIN NEGATIVE (NEGATIVE); URINE BLOOD NEGATIVE (NEGATIVE); URINE CLARITY Clear (Clear); URINE COLOR Yellow (YELLOW); URINE GLUCOSE (UA) 1+ mg/dL (Normal); URINE LEUKOCYTE ESTERASE TRACE Leu/uL (Negative); URINE PROTEIN NEGATIVE (NEGATIVE); URINE UROBILINOGEN NORMAL mg/dL (0.2-1.0)
[2018-07-16 17:14] LABS: ALB/GLOB RATIO 1.1 (1.0-2.1); ALBUMIN 4.1 g/dL (3.5-5.0); ALT/SGPT 36 U/L (9-52); AST/SGOT 26 U/L (14-36); BLOOD UREA NITROGEN 20 mg/dL (7-17); GFR NON-AFRICAN AMERICAN 49
[2018-07-16 17:16] LABS: BARBITURATES, UR NEGATIVE (NEGATIVE); OPIATES, UR NEGATIVE (NEGATIVE); PHENCYCLIDINE, UR NEGATIVE (NEGATIVE)
[2018-07-16 17:28] LABS: BENZODIAZEPINES, UR POSITIVE (NEGATIVE)
--- NOTE | 2018-07-16 17:40 | C.PDOC ---
History Of Present Illness 73 y/o female, w/PMhx of depression and anxiety, presents to the ER complaining difficulty sleeping which has been present for the past 2 weeks. Patient states that she was taking Trazadone but she recently ran out of her medications. Patient reports that she has history of similar symptoms. She has been complaint with her psychiatric medication and sees her psychiatrist, Dr. Ame smith. Otherwise, patient denies having suicidal ideation, homicidal ideation, SOB, fever, chest pain, palpitations, and difficulty breathing. Time Seen by Provider: 07/16/18 16:23 Chief Complaint (Nursing): Psychiatric Evaluation History Per: Patient History/Exam Limitations: no limitations Onset/Duration Of Symptoms: Days Current Symptoms Are (Timing): Still Present Past Medical History Reviewed: Historical Data, Nursing Documentation, Vital Signs Vital Signs: Last Vital Signs Temp 97.9 F 07/16/18 16:06 Pulse 93 H 07/16/18 19:22 Resp 18 07/16/18 19:22 BP 138/83 07/16/18 19:22 Pulse Ox 97 07/16/18 19:22 - Medical History PMH: Depression, Diabetes, HTN, Hypercholesterolemia Denies: Hepatitis, HIV, Chronic Kidney Disease, Seizures, Sexually Transmitted Disease Other Surgeries: Hx of surgeries - [facility] Procedures GROUP PSYCHOTHERAPY (06/10/17) INDIVIDUAL PSYCHOTHERAPY, SUPPORTIVE (06/10/17) MEDICATION MANAGEMENT (06/10/17) Family History: States: No Known Family Hx - Social History Hx Tobacco Use: No Hx Alcohol Use: No Hx Substance Use: No - Immunization History Hx Tetanus Toxoid Vaccination: Yes Hx Influenza Vaccination: Yes Review Of Systems Except As Marked, All Systems Reviewed And Found Negative. Psych: Positive for: Other (auditory hallucinations). Negative for: Suicidal ideation Physical Exam - Physical Exam Appears: Non-toxic, No Acute Distress Skin: Normal Color, Warm, Dry Head: Atraumatic, Normacephalic Eye(s): bilateral: Normal Inspection, EOMI Nose: Normal Oral Mucosa: Moist Neck: Normal ROM, Supple Chest: Symmetrical Cardiovascular: Rhythm Regular Respiratory: Normal Breath Sounds, No Rales, No Rhonchi, No Wheezing Gastrointestinal/Abdominal: Soft, No Tenderness Neurological/Psych: Oriented x3, Normal Speech, Other (flat affect) ED Course And Treatment - Laboratory Results Result Diagrams: 07/16/18 16:55 07/16/18 16:55 O2 Sat by Pulse Oximetry: 98 (RA) Pulse Ox Interpretation: Normal Progress Note: Labs and UA ordered. Pt was seen and evaluated by refuse and recycling worker who notes pt is cleared for discharge. 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 Pt feels comfortable with discharge plan. Disposition - Disposition Referrals: Sriram Mccloud MD [Staff Provider] - Disposition: HOME/ ROUTINE Disposition Time: 18:34 Condition: STABLE Additional Instructions: Go to the pharmacy tomorrow morning to fill your prescription. Return to the ER if symptoms persist or worsen. Vaya a la farmacia maana por la maana para surtir eldridge receta. Regrese a la shan de emergencias si los sntomas persisten o empeoran. Instructions: Anxiety, Adult (DC) Forms: [employer] (Ivorian) Print Language: UPPER SORBIAN - Clinical Impression Clinical Impression: Anxiety - PA / GEARMAN / Resident Statement MD/DO has reviewed & agrees with the documentation as recorded. - Scribe Statement The provider has reviewed the documentation as recorded by the Scribe Rom Finn Provider Attestation All medical record entries made by the Scribe were at my direction and personally dictated by me. I have reviewed the chart and agree that the record accurately reflects my personal performance of the history, physical exam, medical decision making, and the department course for this patient. I have also personally directed, reviewed, and agree with the discharge instructions and disposition.
[2018-07-16 19:23] VITALS: BP 138/83; PULSE 93; RESP 18
[2018-07-16] MEDS ORDERED: traZODone 25 mg Tab PO SCH (22:00)
[2018-07-17 12:22] VITALS: O2SAT 98
== END 2018-07-16 19:23 | disposition home or self-care (01) ==
LOC: C.ER 16:01
DX: F41.9 Anxiety disorder, unspecified (principal)
CPT/HCPCS: 80053; 81001; 85025; 99283; G0480